=== PATIENT | female | born 1945 | race Asian ===

== ENCOUNTER 2017-05-20 15:08 | Inpatient (IN) | payer OTHER, MEDICARE ==
[2017-05-20 16:22] LABS: ADD MAN DIFF? NO
[2017-05-20 16:26] LABS: BASOPHIL # 0.1 10^3/ul (0.0-0.1); BASOPHILS % 0.5 % (0.0-2.0); EOSINOPHILS # 0.3 10^3/ul (0.0-0.5); EOSINOPHILS % 3.2 % (0.0-7.0); HEMATOCRIT 22.9 % (37.0-47.0); HEMOGLOBIN 7.8 g/dl (12.0-16.0); LYMPHOCYTES # 1.9 10^3/ul (0.8-2.9); LYMPHOCYTES % 18.5 % (15.0-51.0); MEAN CORPUSCULAR HEMOGLOBIN 28.7 pg (29.0-33.0); MEAN CORPUSCULAR HGB CONC 34.1 g/dl (32.0-37.0); MEAN CORPUSCULAR VOLUME 84.2 fl (82.0-101.0); MEAN PLATELET VOLUME 10.4 fl (7.4-10.4); MONOCYTE # 0.6 10^3/ul (0.3-0.9); MONOCYTES % 6.1 % (0.0-11.0); NEUTROPHIL # 7.5 10^3/ul (1.6-7.5); NEUTROPHILS % 71.2 % (39.0-77.0); PLATELET COUNT 447 10^3/UL (140-415); RED BLOOD COUNT 2.72 10^6/ul (4.20-5.40); RED CELL DISTRIBUTION WIDTH 15.9 % (11.5-14.5)
[2017-05-20 16:26] LABS: WHITE BLOOD COUNT 10.5 10^3/ul (4.8-10.8)
[2017-05-20 16:42] LABS: INR 0.91; PROTIME 12.3 Sec (11.9-14.9)
[2017-05-20 16:43] LABS: PARTIAL THROMBOPLASTIN TIME 34.4 Sec (25.0-35.0)
[2017-05-20 16:46] LABS: ANION GAP 20 (8-16); BLOOD UREA NITROGEN 62 mg/dl (7-20); CALCIUM 9.3 mg/dl (8.4-10.2); CARBON DIOXIDE 16 mmol/L (21-31); CHLORIDE 107 mmol/L (97-110); CREATININE 4.37 mg/dl (0.44-1.00); GLUCOSE 148 mg/dl (70-220); MAGNESIUM 2.5 mg/dl (1.7-2.5); PHOSPHORUS 4.7 mg/dl (2.5-4.9); POTASSIUM 3.5 mmol/L (3.5-5.1); SODIUM 139 mmol/L (135-144)
[2017-05-20 16:57] LABS: TROPONIN-I 0.024 ng/ml (0.00-0.12)
[2017-05-20 18:01] LABS: ADD UMIC YES; UR ASCORBIC ACID 40 mg/dL (NEGATIVE); UR BACTERIA FEW /HPF (NONE SEEN); UR BILIRUBIN (Dip) NEGATIVE (NEGATIVE); UR BLOOD (Dip) NEGATIVE (NEGATIVE); UR CLARITY CLEAR (CLEAR); UR COLOR STRAW (YELLOW); UR GLUCOSE (Dip) 3+ mg/dL (NEGATIVE); UR KETONES (Dip) NEGATIVE (NEGATIVE); UR LEUKOCYTE ESTERASE (Dip) NEGATIVE Leu/ul (NEGATIVE); UR NITRITE (Dip) NEGATIVE (NEGATIVE); UR RBC 0 /HPF (0-5); UR SPECIFIC GRAVITY (Dip) 1.009 (1.003-1.030); UR TOTAL PROTEIN (Dip) 3+ mg/dl (NEGATIVE); UR UROBILINOGEN (Dip) NEGATIVE (NEGATIVE); UR WBC 1 /HPF (0-5)
[2017-05-20] MEDS ORDERED: ACETAMINOPHEN 325 MG TAB PO (19:00)
[2017-05-20] MEDS ORDERED: ONDANSETRON 4 MG INJ IV (19:00)
[2017-05-20] MEDS ORDERED: NITROGLYCERIN (SL) 0.4 MG TAB SL (21:30)
[2017-05-20] MEDS ORDERED: GLUCOSE GEL 15 GRAM TUBE PO ×2 (22:00)
[2017-05-20] MEDS ORDERED: GLUCAGON 1 MG INJ IM (22:00)
[2017-05-20] MEDS ORDERED: GLUCOSE GEL 15 GRAM TUBE BUCCAL (22:00)
[2017-05-20] MEDS ORDERED: DEXTROSE 50% 50 ML SYRINGE IV ×2 (22:00)
[2017-05-20 22:09] LABS: CREATINE KINASE < 20 IU/L (23-200)
[2017-05-20 22:17] LABS: CK-MB 0.59 ng/ml (0.0-2.4); TROPONIN-I 0.029 ng/ml (0.00-0.12)
[2017-05-21] MEDS: ACCU-CHEK XX (02:42)
[2017-05-21 06:26] LABS: CREATINE KINASE 41 IU/L (23-200)
[2017-05-21 06:28] LABS: ALANINE AMINOTRANSFERASE 20 IU/L (13-69); ALBUMIN 3.4 g/dl (3.3-4.9); ALBUMIN/GLOBULIN RATIO 0.87; ALKALINE PHOSPHATASE 74 IU/L (42-121); ANION GAP 17 (8-16); ASPARTATE AMINO TRANSFERASE 15 IU/L (15-46); BLOOD UREA NITROGEN 60 mg/dl (7-20); CALCIUM 9.1 mg/dl (8.4-10.2); CARBON DIOXIDE 17 mmol/L (21-31); CHLORIDE 113 mmol/L (97-110); CREATININE 4.37 mg/dl (0.44-1.00); POTASSIUM 3.8 mmol/L (3.5-5.1); SODIUM 143 mmol/L (135-144); TOTAL PROTEIN 7.3 g/dl (6.1-8.1)
[2017-05-21 06:34] LABS: CK INDEX 2.9; TROPONIN-I 0.039 ng/ml (0.00-0.12)
[2017-05-21 06:58] LABS: HEMOGLOBIN A1C 6.7 % (0-5.9)
[2017-05-21 06:58] LABS: HDL CHOLESTEROL 27 mg/dl (33-92); TRIGLYCERIDES 471 mg/dl (0-149)
[2017-05-21 07:07] LABS: TROPONIN-I 0.033 ng/ml (0.00-0.12)
[2017-05-21 07:12] LABS: GLUCOSE 50 mg/dl (70-220)
[2017-05-21 07:15] LABS: CHOLESTEROL 325 mg/dl (100-200)
[2017-05-21 07:17] LABS: LDL CHOLESTEROL,CALCULATED 204 mg/dl
[2017-05-21] MEDS: INSULIN ASPART [NOVOLOG] 3 ML PEN SC ×4 (07:55→21:20)
[2017-05-21] MEDS: INSULIN GLARGINE [LANtus] 3 ML PEN SC (08:00)
[2017-05-21] MEDS: ALLOPURINOL 100 MG TAB PO (08:52)
[2017-05-21] MEDS: LEVOTHYROXINE 25 MCG TAB PO (08:52)
[2017-05-21] MEDS: CHOLECALCIFEROL 1,000 UNIT TAB PO (08:53)
[2017-05-21] MEDS: CLOPIDOGREL 75 MG TAB PO (08:53)
[2017-05-21] MEDS: PANTOPRAZOLE (EC) 40 MG TAB PO (08:53)
[2017-05-21] MEDS: AMLODIPINE 10 MG TAB PO (08:53)
[2017-05-21] MEDS: GEMFIBROZIL 600 MG TAB PO (08:53)
[2017-05-21 08:54] LABS: HAAIG REFLEX REFLEX FILED
[2017-05-21 08:56] LABS: RETICULOCYTE COUNT # 0.046 X10^6 (0.020-0.110); RETICULOCYTE COUNT % 1.8 % (0.5-1.5)
[2017-05-21 08:56] LABS: RETICULOCYTE RBC 2.55
[2017-05-21 09:29] LABS: URIC ACID 4.3 mg/dl (3.1-7.9)
[2017-05-21 09:35] LABS: IRON 45 ug/dl (35-150)
[2017-05-21 09:46] LABS: % IRON SATURATION 14 % SAT (22-52); TOTAL IRON BINDING CAPACITY 313 ug/dl (241-421)
[2017-05-21] MEDS: DEXTROSE 5%-0.45% NACL 1,000 ML IV (09:57)
[2017-05-21 10:08] LABS: HEPATITIS B SURFACE ANTIGEN NEGATIVE (NEGATIVE)
[2017-05-21 10:26] LABS: HEPATITIS B CORE ANTIBODY REACTIVE (NEGATIVE); HEPATITIS C VIRAL ANTIBODY NEGATIVE (NEGATIVE); HIV 1&2 ANTIBODY NEGATIVE (NEGATIVE)
[2017-05-21 10:42] LABS: FOLATE 14.1 ng/ml (2.8-20.0)
[2017-05-21] MEDS: EPOETIN 3000 UNITS/1 ML INJ (ESRD) SC (18:06)
[2017-05-22] MEDS: DEXTROSE 5%-0.45% NACL 1,000 ML IV
[2017-05-22] MEDS: ACCU-CHEK XX ×2 (03:00→21:58)
[2017-05-22] MEDS: LEVOTHYROXINE 25 MCG TAB PO (06:24)
[2017-05-22] MEDS: PANTOPRAZOLE (EC) 40 MG TAB PO (06:24)
[2017-05-22] MEDS ORDERED: LIDOCAINE 1% (MDV) 20 ML INJ (07:15)
[2017-05-22] MEDS ORDERED: HEPARIN 1000 UNITS/ML 10 ML INJ (07:16)
[2017-05-22] MEDS ORDERED: FENTAnyl 50 MCG/ML VIAL (07:30)
[2017-05-22] MEDS ORDERED: IOHEXOL 350MG/ML 50 ML BTL (07:33)
[2017-05-22] MEDS: ESCITALOPRAM 10 MG TAB PO (08:46)
[2017-05-22] MEDS: GEMFIBROZIL 600 MG TAB PO (08:47)
[2017-05-22] MEDS: ALLOPURINOL 100 MG TAB PO (08:47)
[2017-05-22] MEDS: CLOPIDOGREL 75 MG TAB PO (08:47)
[2017-05-22] MEDS: CHOLECALCIFEROL 1,000 UNIT TAB PO (08:47)
[2017-05-22] MEDS: AMLODIPINE 10 MG TAB PO (08:49)
[2017-05-22] MEDS: INSULIN ASPART [NOVOLOG] 3 ML PEN SC ×4 (08:49→21:00)
[2017-05-22 11:00] LABS: WHITE BLOOD COUNT 9.5 10^3/ul (4.8-10.8)
[2017-05-22 11:00] LABS: ABNORMAL IP MESSAGE 1; MEAN CORPUSCULAR HEMOGLOBIN 28.4 pg (29.0-33.0); MEAN CORPUSCULAR HGB CONC 33.7 g/dl (32.0-37.0); MEAN CORPUSCULAR VOLUME 84.4 fl (82.0-101.0); MEAN PLATELET VOLUME 10.2 fl (7.4-10.4); PLATELET COUNT 371 10^3/UL (140-415); RED BLOOD COUNT 2.25 10^6/ul (4.20-5.40); RED CELL DISTRIBUTION WIDTH 15.9 % (11.5-14.5)
[2017-05-22 11:04] LABS: POSITIVE DIFF @See below
[2017-05-22 11:06] LABS: ADD MAN DIFF? YES; HEMOGLOBIN 6.4 g/dl (12.0-16.0)
[2017-05-22 11:17] LABS: ANION GAP 13 (8-16); BLOOD UREA NITROGEN 27 mg/dl (7-20); CARBON DIOXIDE 21 mmol/L (21-31); CHLORIDE 109 mmol/L (97-110); CREATININE 2.13 mg/dl (0.44-1.00); GLUCOSE 170 mg/dl (70-220); POTASSIUM 3.1 mmol/L (3.5-5.1); SODIUM 140 mmol/L (135-144)
[2017-05-22 12:23] LABS: HEMATOCRIT 18.6 % (37.0-47.0)
[2017-05-22 12:28] LABS: HEMOGLOBIN 6.6 g/dl (12.0-16.0)
[2017-05-22] MEDS: POTASSIUM CHLORIDE (SR) 20 MEQ TAB PO (15:14)
[2017-05-22] MEDS: EPOETIN 10000 UNITS/1 ML INJ (ESRD) SC (17:31)
[2017-05-22] MEDS: morphine 2 MG INJ IV (19:28)
[2017-05-22] MEDS: ACETAMINOPHEN 500 MG TAB PO (20:33)
[2017-05-22 20:44] LABS: IMMEDIATE SPIN CROSSMATCH 1 1
[2017-05-22] MEDS: SOD CHLORIDE 0.9% 250 ML IV (21:58)
[2017-05-23] MEDS: PANTOPRAZOLE (EC) 40 MG TAB PO (06:10)
[2017-05-23] MEDS: INSULIN ASPART [NOVOLOG] 3 ML PEN SC ×4 (07:55→21:00)
[2017-05-23] MEDS: LEVOTHYROXINE 25 MCG TAB PO (07:59)
[2017-05-23] MEDS: AMLODIPINE 10 MG TAB PO (08:15)
[2017-05-23] MEDS: ESCITALOPRAM 10 MG TAB PO (08:22)
[2017-05-23] MEDS: ALLOPURINOL 100 MG TAB PO (08:23)
[2017-05-23] MEDS: CHOLECALCIFEROL 1,000 UNIT TAB PO (08:23)
[2017-05-23] MEDS: GEMFIBROZIL 600 MG TAB PO (08:23)
[2017-05-23] MEDS: CLOPIDOGREL 75 MG TAB PO (08:33)
[2017-05-23] MEDS: morphine 2 MG INJ IV (08:37)
[2017-05-23 11:56] LABS: ADD MAN DIFF? NO
[2017-05-23 12:02] LABS: WHITE BLOOD COUNT 9.6 10^3/ul (4.8-10.8)
[2017-05-23 12:02] LABS: BASOPHIL # 0.1 10^3/ul (0.0-0.1); BASOPHILS % 0.6 % (0.0-2.0); EOSINOPHILS # 0.3 10^3/ul (0.0-0.5); EOSINOPHILS % 3.5 % (0.0-7.0); HEMATOCRIT 24.1 % (37.0-47.0); HEMOGLOBIN 7.9 g/dl (12.0-16.0); LYMPHOCYTES # 2.2 10^3/ul (0.8-2.9); LYMPHOCYTES % 22.7 % (15.0-51.0); MEAN CORPUSCULAR HEMOGLOBIN 28.4 pg (29.0-33.0); MEAN CORPUSCULAR HGB CONC 32.8 g/dl (32.0-37.0); MEAN CORPUSCULAR VOLUME 86.7 fl (82.0-101.0); MEAN PLATELET VOLUME 9.9 fl (7.4-10.4); MONOCYTE # 0.6 10^3/ul (0.3-0.9); MONOCYTES % 6.4 % (0.0-11.0); NEUTROPHIL # 6.3 10^3/ul (1.6-7.5); NEUTROPHILS % 65.4 % (39.0-77.0); PLATELET COUNT 381 10^3/UL (140-415); RED BLOOD COUNT 2.78 10^6/ul (4.20-5.40)
[2017-05-23 12:29] LABS: ANION GAP 15 (8-16); BLOOD UREA NITROGEN 31 mg/dl (7-20); CALCIUM 8.4 mg/dl (8.4-10.2); CARBON DIOXIDE 21 mmol/L (21-31); CHLORIDE 104 mmol/L (97-110); CREATININE 3.34 mg/dl (0.44-1.00); GLUCOSE 124 mg/dl (70-220); POTASSIUM 4.2 mmol/L (3.5-5.1); SODIUM 136 mmol/L (135-144)
[2017-05-23] MEDS: EPOETIN 3000 UNITS/1 ML INJ (ESRD) SC (17:34)
[2017-05-23] MEDS: hydrALAzine 20 MG INJ IV (17:36)
[2017-05-23 17:48] LABS: PTH CALCIUM 8.6 mg/dL (8.6-10.4)
[2017-05-24] MEDS: ACCU-CHEK XX (02:00)
[2017-05-24] MEDS: PANTOPRAZOLE (EC) 40 MG TAB PO (06:13)
[2017-05-24] MEDS: LEVOTHYROXINE 25 MCG TAB PO (06:13)
[2017-05-24] MEDS: INSULIN ASPART [NOVOLOG] 3 ML PEN SC ×4 (07:55→21:16)
[2017-05-24] MEDS: GEMFIBROZIL 600 MG TAB PO (08:32)
[2017-05-24] MEDS: ALLOPURINOL 100 MG TAB PO (08:32)
[2017-05-24] MEDS: CHOLECALCIFEROL 1,000 UNIT TAB PO (08:32)
[2017-05-24] MEDS: CLOPIDOGREL 75 MG TAB PO (08:32)
[2017-05-24] MEDS: AMLODIPINE 10 MG TAB PO (08:32)
[2017-05-24] MEDS: ESCITALOPRAM 10 MG TAB PO (08:32)
[2017-05-24] MEDS ORDERED: ATENOLOL 50 MG TAB PO (21:00)
[2017-05-24] MEDS: ATENOLOL 50 MG TAB PO (21:12)
[2017-05-25] MEDS: ACCU-CHEK XX (02:00)
[2017-05-25] MEDS: PANTOPRAZOLE (EC) 40 MG TAB PO (05:58)
[2017-05-25] MEDS: LEVOTHYROXINE 25 MCG TAB PO (06:00)
[2017-05-25] MEDS: GEMFIBROZIL 600 MG TAB PO ×2 (08:08→09:37)
[2017-05-25] MEDS: ATENOLOL 50 MG TAB PO ×2 (08:08→21:09)
[2017-05-25] MEDS: ESCITALOPRAM 10 MG TAB PO ×2 (08:08→09:37)
[2017-05-25] MEDS: AMLODIPINE 10 MG TAB PO ×2 (08:08→09:37)
[2017-05-25] MEDS: INSULIN ASPART [NOVOLOG] 3 ML PEN SC ×4 (08:41→21:00)
[2017-05-25] MEDS: CHOLECALCIFEROL 1,000 UNIT TAB PO ×2 (08:55→09:37)
[2017-05-25] MEDS: ALLOPURINOL 100 MG TAB PO ×2 (08:55→09:37)
[2017-05-25] MEDS: CLOPIDOGREL 75 MG TAB PO (09:37)
[2017-05-25] MEDS ORDERED: ONDANSETRON 4 MG INJ IV (12:30)
[2017-05-26] MEDS: ACCU-CHEK XX (02:00)
[2017-05-26] MEDS: PANTOPRAZOLE (EC) 40 MG TAB PO (05:47)
[2017-05-26] MEDS: LEVOTHYROXINE 25 MCG TAB PO (06:04)
[2017-05-26] MEDS: INSULIN ASPART [NOVOLOG] 3 ML PEN SC ×4 (07:43→21:00)
[2017-05-26] MEDS: ATENOLOL 50 MG TAB PO ×2 (08:13→20:43)
[2017-05-26] MEDS: AMLODIPINE 10 MG TAB PO (08:13)
[2017-05-26] MEDS: GEMFIBROZIL 600 MG TAB PO (08:18)
[2017-05-26] MEDS: CHOLECALCIFEROL 1,000 UNIT TAB PO (08:19)
[2017-05-26] MEDS: ESCITALOPRAM 10 MG TAB PO (08:19)
[2017-05-26] MEDS: CLOPIDOGREL 75 MG TAB PO (08:19)
[2017-05-26] MEDS: ALLOPURINOL 100 MG TAB PO (08:19)
[2017-05-26 09:05] LABS: ADD MAN DIFF? NO
[2017-05-26 09:08] LABS: WHITE BLOOD COUNT 9.9 10^3/ul (4.8-10.8)
[2017-05-26 09:08] LABS: BASOPHIL # 0.1 10^3/ul (0.0-0.1); BASOPHILS % 0.5 % (0.0-2.0); EOSINOPHILS # 0.3 10^3/ul (0.0-0.5); EOSINOPHILS % 2.5 % (0.0-7.0); HEMATOCRIT 26.4 % (37.0-47.0); HEMOGLOBIN 8.6 g/dl (12.0-16.0); LYMPHOCYTES # 1.6 10^3/ul (0.8-2.9); LYMPHOCYTES % 15.8 % (15.0-51.0); MEAN CORPUSCULAR HEMOGLOBIN 28.6 pg (29.0-33.0); MEAN CORPUSCULAR HGB CONC 32.6 g/dl (32.0-37.0); MEAN CORPUSCULAR VOLUME 87.7 fl (82.0-101.0); MEAN PLATELET VOLUME 9.8 fl (7.4-10.4); MONOCYTE # 0.8 10^3/ul (0.3-0.9); MONOCYTES % 8.5 % (0.0-11.0); NEUTROPHIL # 7.1 10^3/ul (1.6-7.5); PLATELET COUNT 386 10^3/UL (140-415); RED BLOOD COUNT 3.01 10^6/ul (4.20-5.40); RED CELL DISTRIBUTION WIDTH 15.9 % (11.5-14.5)
[2017-05-26 09:30] LABS: ANION GAP 12 (8-16); BLOOD UREA NITROGEN 10 mg/dl (7-20); CALCIUM 8.8 mg/dl (8.4-10.2); CARBON DIOXIDE 29 mmol/L (21-31); CHLORIDE 102 mmol/L (97-110); GLUCOSE 174 mg/dl (70-220); POTASSIUM 3.5 mmol/L (3.5-5.1); SODIUM 139 mmol/L (135-144)
[2017-05-26 13:29] LABS: OCCULT BLOOD STOOL NEGATIVE (NEGATIVE)
[2017-05-26] MEDS: EPOETIN 3000 UNITS/1 ML INJ (ESRD) SC (17:33)
[2017-05-27] MEDS: ACCU-CHEK XX (02:00)
[2017-05-27] MEDS: PANTOPRAZOLE (EC) 40 MG TAB PO (06:25)
[2017-05-27] MEDS: LEVOTHYROXINE 25 MCG TAB PO (06:25)
[2017-05-27] MEDS: hydrALAzine 20 MG INJ IV (06:26)
[2017-05-27 07:56] LABS: PTH INTACT 67 pg/mL (14-64)
[2017-05-27] MEDS: INSULIN ASPART [NOVOLOG] 3 ML PEN SC ×4 (08:10→22:04)
[2017-05-27] MEDS: AMLODIPINE 10 MG TAB PO (08:19)
[2017-05-27] MEDS: ATENOLOL 50 MG TAB PO ×2 (08:20→21:00)
[2017-05-27] MEDS: CLOPIDOGREL 75 MG TAB PO (08:21)
[2017-05-27] MEDS: ESCITALOPRAM 10 MG TAB PO (08:21)
[2017-05-27] MEDS: GEMFIBROZIL 600 MG TAB PO (08:22)
[2017-05-27] MEDS: CHOLECALCIFEROL 1,000 UNIT TAB PO (08:22)
[2017-05-27] MEDS: ALLOPURINOL 100 MG TAB PO (08:22)
[2017-05-27] MEDS ORDERED: LIDOCAINE 1% (MPF) 30 ML INJ (11:15)
[2017-05-27] MEDS ORDERED: PROPOFOL 100 ML (11:46)
[2017-05-27] MEDS ORDERED: MIDAZOLAM 1 MG/ML 2 ML INJ (11:46)
[2017-05-27] MEDS ORDERED: FENTAnyl 50 MCG/ML VIAL (11:46)
[2017-05-27] MEDS: GELATIN SIZE 100 SPONGE (12:00)
[2017-05-27] MEDS: THROMBIN 5000 UNIT VIAL (12:00)
[2017-05-27] MEDS: HEPARIN 1000 UNITS/ML 10 ML INJ (12:01)
[2017-05-27] MEDS ORDERED: ROPIVACAINE 0.2% 20 ML VIAL (12:05)
[2017-05-27] MEDS ORDERED: FENTAnyl 50 MCG/ML VIAL IV (14:00)
[2017-05-27] MEDS ORDERED: hydrALAzine 20 MG INJ IV (14:00)
[2017-05-28] MEDS: morphine 2 MG INJ IV ×2 (02:38→20:14)
[2017-05-28] MEDS: ACCU-CHEK XX (02:49)
[2017-05-28] MEDS: PANTOPRAZOLE (EC) 40 MG TAB PO (05:57)
[2017-05-28] MEDS: LEVOTHYROXINE 25 MCG TAB PO (05:57)
[2017-05-28] MEDS: ACETAMINOPHEN 500 MG TAB PO (06:04)
[2017-05-28] MEDS: INSULIN ASPART [NOVOLOG] 3 ML PEN SC ×4 (08:09→23:34)
[2017-05-28] MEDS: GEMFIBROZIL 600 MG TAB PO (09:11)
[2017-05-28] MEDS: CLOPIDOGREL 75 MG TAB PO (09:11)
[2017-05-28] MEDS: AMLODIPINE 10 MG TAB PO (09:12)
[2017-05-28] MEDS: ESCITALOPRAM 10 MG TAB PO (09:12)
[2017-05-28] MEDS: CHOLECALCIFEROL 1,000 UNIT TAB PO (09:12)
[2017-05-28] MEDS: ALLOPURINOL 100 MG TAB PO (09:12)
[2017-05-28] MEDS: ATENOLOL 50 MG TAB PO ×2 (09:13→20:17)
[2017-05-28] MEDS: EPOETIN 3000 UNITS/1 ML INJ (ESRD) SC (20:16)
[2017-05-29] MEDS: ACCU-CHEK XX (02:00)
[2017-05-29] MEDS: PANTOPRAZOLE (EC) 40 MG TAB PO (06:02)
[2017-05-29] MEDS: LEVOTHYROXINE 25 MCG TAB PO (06:02)
[2017-05-29] MEDS: ESCITALOPRAM 10 MG TAB PO (08:29)
[2017-05-29] MEDS: CHOLECALCIFEROL 1,000 UNIT TAB PO (08:29)
[2017-05-29] MEDS: ALLOPURINOL 100 MG TAB PO (08:29)
[2017-05-29] MEDS: CLOPIDOGREL 75 MG TAB PO (08:29)
[2017-05-29] MEDS: GEMFIBROZIL 600 MG TAB PO (08:29)
[2017-05-29] MEDS: AMLODIPINE 10 MG TAB PO (08:30)
[2017-05-29] MEDS: ATENOLOL 50 MG TAB PO (08:36)
[2017-05-29] MEDS: INSULIN ASPART [NOVOLOG] 3 ML PEN SC ×5 (08:39→21:07)
[2017-05-29] MEDS: ACETAMINOPHEN 500 MG TAB PO ×2 (11:56→20:57)
[2017-05-29] MEDS: INSULIN GLARGINE [LANtus] 3 ML PEN SC (23:38)
[2017-05-30] MEDS: ACCU-CHEK XX (02:00)
[2017-05-30 06:21] LABS: ADD MAN DIFF? NO
[2017-05-30] MEDS: LEVOTHYROXINE 25 MCG TAB PO (06:24)
[2017-05-30] MEDS: PANTOPRAZOLE (EC) 40 MG TAB PO (06:24)
[2017-05-30 06:38] LABS: WHITE BLOOD COUNT 7.7 10^3/ul (4.8-10.8)
[2017-05-30 06:38] LABS: BASOPHIL # 0.1 10^3/ul (0.0-0.1); BASOPHILS % 0.7 % (0.0-2.0); EOSINOPHILS # 0.3 10^3/ul (0.0-0.5); EOSINOPHILS % 3.8 % (0.0-7.0); HEMATOCRIT 22.3 % (37.0-47.0); HEMOGLOBIN 7.2 g/dl (12.0-16.0); LYMPHOCYTES # 1.9 10^3/ul (0.8-2.9); LYMPHOCYTES % 25.2 % (15.0-51.0); MEAN CORPUSCULAR HEMOGLOBIN 28.3 pg (29.0-33.0); MEAN CORPUSCULAR HGB CONC 32.3 g/dl (32.0-37.0); MEAN CORPUSCULAR VOLUME 87.8 fl (82.0-101.0); MEAN PLATELET VOLUME 10.5 fl (7.4-10.4); MONOCYTE # 0.7 10^3/ul (0.3-0.9); MONOCYTES % 8.8 % (0.0-11.0); NEUTROPHIL # 4.7 10^3/ul (1.6-7.5); NEUTROPHILS % 61.2 % (39.0-77.0); PLATELET COUNT 349 10^3/UL (140-415); RED BLOOD COUNT 2.54 10^6/ul (4.20-5.40); RED CELL DISTRIBUTION WIDTH 15.6 % (11.5-14.5)
[2017-05-30 06:54] LABS: ANION GAP 15 (8-16); BLOOD UREA NITROGEN 30 mg/dl (7-20); CALCIUM 8.8 mg/dl (8.4-10.2); CARBON DIOXIDE 22 mmol/L (21-31); CHLORIDE 103 mmol/L (97-110); GLUCOSE 144 mg/dl (70-220); POTASSIUM 3.8 mmol/L (3.5-5.1); SODIUM 136 mmol/L (135-144)
[2017-05-30] MEDS: INSULIN ASPART [NOVOLOG] 3 ML PEN SC ×7 (07:55→21:13)
[2017-05-30] MEDS: ALLOPURINOL 100 MG TAB PO (11:48)
[2017-05-30] MEDS: GEMFIBROZIL 600 MG TAB PO (11:48)
[2017-05-30] MEDS: ESCITALOPRAM 10 MG TAB PO (11:49)
[2017-05-30] MEDS: AMLODIPINE 10 MG TAB PO (11:49)
[2017-05-30] MEDS: CLOPIDOGREL 75 MG TAB PO (11:50)
[2017-05-30] MEDS: CHOLECALCIFEROL 1,000 UNIT TAB PO (11:50)
[2017-05-30] MEDS: ACETAMINOPHEN 500 MG TAB PO (12:50)
[2017-05-30] MEDS: EPOETIN 3000 UNITS/1 ML INJ (ESRD) SC (18:20)
[2017-05-30] MEDS: INSULIN GLARGINE [LANtus] 3 ML PEN SC (21:13)
[2017-05-31] MEDS: ACCU-CHEK XX (03:01)
[2017-05-31] MEDS: PANTOPRAZOLE (EC) 40 MG TAB PO (06:19)
[2017-05-31] MEDS: LEVOTHYROXINE 25 MCG TAB PO (06:19)
[2017-05-31 06:37] LABS: ADD MAN DIFF? NO
[2017-05-31 06:39] LABS: WHITE BLOOD COUNT 6.4 10^3/ul (4.8-10.8)
[2017-05-31 06:39] LABS: BASOPHILS % 0.6 % (0.0-2.0); EOSINOPHILS # 0.2 10^3/ul (0.0-0.5); EOSINOPHILS % 3.1 % (0.0-7.0); HEMATOCRIT 23.8 % (37.0-47.0); HEMOGLOBIN 7.7 g/dl (12.0-16.0); LYMPHOCYTES % 31.4 % (15.0-51.0); MEAN CORPUSCULAR HGB CONC 32.4 g/dl (32.0-37.0); MEAN CORPUSCULAR VOLUME 86.5 fl (82.0-101.0); MONOCYTE # 0.5 10^3/ul (0.3-0.9); MONOCYTES % 7.8 % (0.0-11.0); NEUTROPHIL # 3.6 10^3/ul (1.6-7.5); NEUTROPHILS % 56.8 % (39.0-77.0); PLATELET COUNT 384 10^3/UL (140-415); RED BLOOD COUNT 2.75 10^6/ul (4.20-5.40); RED CELL DISTRIBUTION WIDTH 15.7 % (11.5-14.5)
[2017-05-31 07:28] LABS: ANION GAP 14 (8-16); BLOOD UREA NITROGEN 25 mg/dl (7-20); CALCIUM 8.9 mg/dl (8.4-10.2); CARBON DIOXIDE 28 mmol/L (21-31); CHLORIDE 99 mmol/L (97-110); CREATININE 3.12 mg/dl (0.44-1.00); GLUCOSE 122 mg/dl (70-220); POTASSIUM 3.4 mmol/L (3.5-5.1); SODIUM 138 mmol/L (135-144)
[2017-05-31] MEDS: INSULIN ASPART [NOVOLOG] 3 ML PEN SC ×6 (07:55→17:55)
[2017-05-31] MEDS: CHOLECALCIFEROL 1,000 UNIT TAB PO (08:45)
[2017-05-31] MEDS: ESCITALOPRAM 10 MG TAB PO (08:46)
[2017-05-31] MEDS: AMLODIPINE 10 MG TAB PO (08:47)
[2017-05-31] MEDS: GEMFIBROZIL 600 MG TAB PO (08:48)
[2017-05-31] MEDS: CLOPIDOGREL 75 MG TAB PO (08:48)
[2017-05-31] MEDS: ALLOPURINOL 100 MG TAB PO (08:48)
[2017-05-31] MEDS: POTASSIUM CHLORIDE (SR) 20 MEQ TAB PO (15:57)
== END 2017-05-31 18:25 | disposition home or self-care (01) | DRG 264 ==
LOC: TEL 18:41 → E/R 15:08
PROC: 03180ZF Bypass Left Brachial Artery to Lower Arm Vein, Open Approach (ICD-10-PCS; principal; 2017-05-22 07:20)
PROC: 06H033Z Insertion of Infusion Device into Inferior Vena Cava, Percutaneous Approach (ICD-10-PCS; 2017-05-22 07:20)
PROC: 0JH63XZ Insertion of Tunneled Vascular Access Device into Chest Subcutaneous Tissue and Fascia, Percutaneous Approach (ICD-10-PCS; 2017-05-22 07:20)
PROC: 5A1D70Z Performance of Urinary Filtration, Intermittent, Less than 6 Hours Per Day (ICD-10-PCS; 2017-05-22 07:20)
PROC: 30233N1 Transfusion of Nonautologous Red Blood Cells into Peripheral Vein, Percutaneous Approach (ICD-10-PCS; 2017-05-22 07:20)
DX: I13.2 Hypertensive heart and chronic kidney disease with heart failure and with stage 5 chronic kidney disease, or end stage renal disease (principal); N18.6 End stage renal disease; E11.22 Type 2 diabetes mellitus with diabetic chronic kidney disease; I50.31 Acute diastolic (congestive) heart failure; D63.1 Anemia in chronic kidney disease; E87.6 Hypokalemia; E03.9 Hypothyroidism, unspecified; M81.0 Age-related osteoporosis without current pathological fracture; E78.5 Hyperlipidemia, unspecified; I25.10 Atherosclerotic heart disease of native coronary artery without angina pectoris; Z79.4 Long term (current) use of insulin
CPT/HCPCS: 36415; 36430; 71010; 80048; 80053; 80061; 81001; 82270; 82306; 82550; 82553; 82607; 82728; 82746; 82962; 83036; 83540; 83735; 83970; 84100; 84484; 84560; 85014; 85018; 85025; 85045; 85610; 85730; 86703; 86704; 86709; 86803; 86850; 86900; 86901; 86920; 87340; 90935; 93005; 93306; 93923; 93970; 99285-25

== ENCOUNTER 2017-08-22 06:59 | Observation (INO) | payer OTHER ==
[2017-08-22] MEDS ORDERED: NITROGLYCERIN (SL) 0.4 MG TAB SL ×2 (07:30→16:00)
[2017-08-22 07:35] LABS: ADD MAN DIFF? NO
[2017-08-22 07:38] LABS: BASOPHIL # 0.1 10^3/ul (0.0-0.1); BASOPHILS % 0.9 % (0.0-2.0); EOSINOPHILS # 0.3 10^3/ul (0.0-0.5); EOSINOPHILS % 2.9 % (0.0-7.0); HEMATOCRIT 33.4 % (37.0-47.0); HEMOGLOBIN 11.9 g/dl (12.0-16.0); LYMPHOCYTES # 2.3 10^3/ul (0.8-2.9); LYMPHOCYTES % 25.8 % (15.0-51.0); MEAN CORPUSCULAR HEMOGLOBIN 28.5 pg (29.0-33.0); MEAN CORPUSCULAR HGB CONC 35.6 g/dl (32.0-37.0); MEAN CORPUSCULAR VOLUME 80.1 fl (82.0-101.0); MEAN PLATELET VOLUME 10.6 fl (7.4-10.4); MONOCYTE # 0.6 10^3/ul (0.3-0.9); MONOCYTES % 6.6 % (0.0-11.0); NEUTROPHIL # 5.7 10^3/ul (1.6-7.5); NEUTROPHILS % 63.5 % (39.0-77.0); PLATELET COUNT 337 10^3/UL (140-415); RED BLOOD COUNT 4.17 10^6/ul (4.20-5.40); RED CELL DISTRIBUTION WIDTH 15.5 % (11.5-14.5)
[2017-08-22 08:01] LABS: ANION GAP 19 (8-16); BLOOD UREA NITROGEN 31 mg/dl (7-20); CALCIUM 8.6 mg/dl (8.4-10.2); CARBON DIOXIDE 28 mmol/L (21-31); CHLORIDE 91 mmol/L (97-110); CREATININE 2.76 mg/dl (0.44-1.00); GLUCOSE 336 mg/dl (70-220); SODIUM 135 mmol/L (135-144)
[2017-08-22 08:12] LABS: B-TYPE NATRIURETIC PEPTIDE 1380 PG/ML (0-125)
[2017-08-22] MEDS ORDERED: ACETAMINOPHEN 325 MG TAB PO (09:00)
[2017-08-22] MEDS ORDERED: ONDANSETRON 4 MG INJ IV (09:00)
[2017-08-22] MEDS: CLOPIDOGREL 75 MG TAB PO (09:05)
[2017-08-22] MEDS: POTASSIUM CHLORIDE (SR) 20 MEQ TAB PO (09:05)
[2017-08-22 15:30] LABS: CREATINE KINASE 28 IU/L (23-200)
[2017-08-22 15:43] LABS: CK INDEX 1.1; CK-MB 0.31 ng/ml (0.0-2.4); TROPONIN-I 0.013 ng/ml (0.00-0.12)
[2017-08-22] MEDS ORDERED: GLUCAGON 1 MG INJ IM (18:30)
[2017-08-22] MEDS ORDERED: GLUCOSE GEL 15 GRAM TUBE BUCCAL (18:30)
[2017-08-22] MEDS ORDERED: DEXTROSE 50% 50 ML SYRINGE IV ×2 (18:30)
[2017-08-22] MEDS ORDERED: GLUCOSE GEL 15 GRAM TUBE PO ×2 (18:30)
[2017-08-22] MEDS: INSULIN ASPART [NOVOLOG] 3 ML PEN SC ×2 (18:56→21:10)
[2017-08-22] MEDS ORDERED: INSULIN GLARGINE [LANtus] 3 ML PEN SC (19:30)
[2017-08-22 19:32] LABS: CREATINE KINASE 27 IU/L (23-200)
[2017-08-22 19:46] LABS: CK INDEX 0.8; CK-MB 0.22 ng/ml (0.0-2.4); TROPONIN-I < 0.012 ng/ml (0.00-0.12)
[2017-08-22 20:26] LABS: ANION GAP 17 (8-16); BLOOD UREA NITROGEN 37 mg/dl (7-20); CALCIUM 8.8 mg/dl (8.4-10.2); CARBON DIOXIDE 27 mmol/L (21-31); CHLORIDE 94 mmol/L (97-110); CREATININE 2.95 mg/dl (0.44-1.00); GLUCOSE 384 mg/dl (70-220); SODIUM 135 mmol/L (135-144)
[2017-08-22] MEDS: INSULIN GLARGINE [LANtus] 3 ML PEN SC (21:12)
[2017-08-23] MEDS: PANTOPRAZOLE (EC) 40 MG TAB PO (05:52)
[2017-08-23] MEDS: LEVOTHYROXINE 25 MCG TAB PO (06:04)
[2017-08-23] MEDS ORDERED: INSULIN ISOPHAN XX (07:30)
[2017-08-23 08:31] LABS: ADD MAN DIFF? NO
[2017-08-23 08:41] LABS: BASOPHIL # 0.1 10^3/ul (0.0-0.1); BASOPHILS % 0.7 % (0.0-2.0); EOSINOPHILS # 0.3 10^3/ul (0.0-0.5); EOSINOPHILS % 3.2 % (0.0-7.0); HEMOGLOBIN 11.6 g/dl (12.0-16.0); LYMPHOCYTES # 2.1 10^3/ul (0.8-2.9); LYMPHOCYTES % 21.7 % (15.0-51.0); MEAN CORPUSCULAR HEMOGLOBIN 27.8 pg (29.0-33.0); MEAN CORPUSCULAR HGB CONC 34.1 g/dl (32.0-37.0); MEAN CORPUSCULAR VOLUME 81.3 fl (82.0-101.0); MEAN PLATELET VOLUME 10.5 fl (7.4-10.4); MONOCYTE # 0.6 10^3/ul (0.3-0.9); MONOCYTES % 6.6 % (0.0-11.0); NEUTROPHIL # 6.6 10^3/ul (1.6-7.5); NEUTROPHILS % 67.5 % (39.0-77.0); PLATELET COUNT 306 10^3/UL (140-415); RED BLOOD COUNT 4.18 10^6/ul (4.20-5.40); RED CELL DISTRIBUTION WIDTH 15.7 % (11.5-14.5)
[2017-08-23 08:41] LABS: WHITE BLOOD COUNT 9.7 10^3/ul (4.8-10.8)
[2017-08-23 08:51] LABS: IRON 80 ug/dl (35-150)
[2017-08-23 08:58] LABS: ANION GAP 15 (8-16); BLOOD UREA NITROGEN 39 mg/dl (7-20); CALCIUM 9.1 mg/dl (8.4-10.2); CARBON DIOXIDE 28 mmol/L (21-31); CHLORIDE 98 mmol/L (97-110); CHOL/HDL RATIO 9.4 RATIO; CHOLESTEROL 264 mg/dl (100-200); CREATININE 3.05 mg/dl (0.44-1.00); GLUCOSE 153 mg/dl (70-220); HDL CHOLESTEROL 28 mg/dl (33-92); MAGNESIUM 1.9 mg/dl (1.7-2.5); PHOSPHORUS 4.6 mg/dl (2.5-4.9); SODIUM 138 mmol/L (135-144)
[2017-08-23 08:59] LABS: % IRON SATURATION 37 % SAT (22-52)
[2017-08-23] MEDS: AMLODIPINE 10 MG TAB PO ×2 (09:00→15:29)
[2017-08-23] MEDS: VALSARTAN 80 MG TAB PO (09:00)
[2017-08-23] MEDS: ESCITALOPRAM 10 MG TAB PO (09:05)
[2017-08-23] MEDS: ASCORBIC ACID 500 MG TAB PO (09:05)
[2017-08-23] MEDS: CLOPIDOGREL 75 MG TAB PO (09:05)
[2017-08-23] MEDS: CHOLECALCIFEROL 1,000 UNIT TAB PO (09:05)
[2017-08-23 09:06] LABS: TOTAL IRON BINDING CAPACITY 216 ug/dl (241-421)
[2017-08-23] MEDS: CALCIUM/VITAMIN D (500/200) TAB PO (09:06)
[2017-08-23] MEDS: FAMOTIDINE 20 MG TAB PO (09:06)
[2017-08-23] MEDS: ALLOPURINOL 100 MG TAB PO (09:06)
[2017-08-23 09:07] LABS: LDL CHOLESTEROL,CALCULATED 50 mg/dl; TRIGLYCERIDES 930 mg/dl (0-149)
[2017-08-23] MEDS: INSULIN ASPART [NOVOLOG] 3 ML PEN SC ×7 (09:07→21:00)
[2017-08-23 11:00] LABS: LIPASE 304 U/L (23-300)
[2017-08-23] MEDS: FISH OIL 1,000 MG CAP PO ×2 (11:22→21:59)
[2017-08-23] MEDS: POTASSIUM CHLORIDE (SR) 20 MEQ TAB PO (11:22)
[2017-08-23] MEDS: METOPROLOL 25 MG TAB PO ×3 (11:30→21:59)
[2017-08-23 19:44] LABS: HEPATITIS B SURFACE ANTIGEN NEGATIVE (NEGATIVE)
[2017-08-23] MEDS: HEPARIN 1000 UNITS/ML 10 ML INJ CATHETER (21:01)
[2017-08-23] MEDS: INSULIN GLARGINE [LANtus] 3 ML PEN SC (21:11)
[2017-08-23] MEDS: ACETAMINOPHEN 325 MG TAB PO (21:57)
[2017-08-23] MEDS: ATORVASTATIN 40 MG TAB PO (21:59)
[2017-08-24] MEDS: PANTOPRAZOLE (EC) 40 MG TAB PO (06:00)
[2017-08-24] MEDS: LEVOTHYROXINE 25 MCG TAB PO ×2 (06:08→13:07)
[2017-08-24 06:28] LABS: ADD MAN DIFF? NO
[2017-08-24 06:30] LABS: BASOPHIL # 0.1 10^3/ul (0.0-0.1); BASOPHILS % 0.9 % (0.0-2.0); EOSINOPHILS # 0.4 10^3/ul (0.0-0.5); HEMATOCRIT 34.1 % (37.0-47.0); HEMOGLOBIN 11.6 g/dl (12.0-16.0); LYMPHOCYTES # 2.3 10^3/ul (0.8-2.9); LYMPHOCYTES % 25.1 % (15.0-51.0); MEAN CORPUSCULAR HEMOGLOBIN 27.9 pg (29.0-33.0); MEAN PLATELET VOLUME 10.4 fl (7.4-10.4); MONOCYTE # 0.6 10^3/ul (0.3-0.9); NEUTROPHIL # 5.6 10^3/ul (1.6-7.5); NEUTROPHILS % 62.8 % (39.0-77.0); PLATELET COUNT 338 10^3/UL (140-415); RED BLOOD COUNT 4.16 10^6/ul (4.20-5.40); RED CELL DISTRIBUTION WIDTH 15.9 % (11.5-14.5)
[2017-08-24 06:51] LABS: ANION GAP 16 (8-16); BLOOD UREA NITROGEN 18 mg/dl (7-20); CARBON DIOXIDE 27 mmol/L (21-31); CHLORIDE 100 mmol/L (97-110); CREATININE 2.33 mg/dl (0.44-1.00); GLUCOSE 170 mg/dl (70-220); POTASSIUM 4.3 mmol/L (3.5-5.1); SODIUM 139 mmol/L (135-144)
[2017-08-24] MEDS: INSULIN ASPART [NOVOLOG] 3 ML PEN SC ×8 (08:00→23:58)
[2017-08-24] MEDS: REGADENOSON 0.4 MG/5 ML SYG (10:15)
[2017-08-24] MEDS: FISH OIL 1,000 MG CAP PO ×2 (13:06→20:51)
[2017-08-24] MEDS: CALCIUM/VITAMIN D (500/200) TAB PO (13:06)
[2017-08-24] MEDS: CLOPIDOGREL 75 MG TAB PO (13:06)
[2017-08-24] MEDS: VALSARTAN 80 MG TAB PO (13:06)
[2017-08-24] MEDS: ASCORBIC ACID 500 MG TAB PO (13:07)
[2017-08-24] MEDS: FAMOTIDINE 20 MG TAB PO (13:07)
[2017-08-24] MEDS: CHOLECALCIFEROL 1,000 UNIT TAB PO (13:07)
[2017-08-24] MEDS: AMLODIPINE 10 MG TAB PO (13:08)
[2017-08-24] MEDS: ALLOPURINOL 100 MG TAB PO (13:08)
[2017-08-24] MEDS: METOPROLOL 25 MG TAB PO ×2 (13:08→20:50)
[2017-08-24] MEDS: ESCITALOPRAM 10 MG TAB PO (13:08)
[2017-08-24] MEDS: ATORVASTATIN 40 MG TAB PO (20:49)
[2017-08-24] MEDS: INSULIN GLARGINE [LANtus] 3 ML PEN SC (20:53)
[2017-08-25] MEDS: PANTOPRAZOLE (EC) 40 MG TAB PO (05:36)
[2017-08-25 07:38] LABS: ADD MAN DIFF? NO
[2017-08-25 07:42] LABS: BASOPHIL # 0.1 10^3/ul (0.0-0.1); BASOPHILS % 0.8 % (0.0-2.0); EOSINOPHILS # 0.4 10^3/ul (0.0-0.5); EOSINOPHILS % 3.7 % (0.0-7.0); HEMATOCRIT 35.3 % (37.0-47.0); HEMOGLOBIN 11.9 g/dl (12.0-16.0); LYMPHOCYTES # 2.3 10^3/ul (0.8-2.9); LYMPHOCYTES % 24.3 % (15.0-51.0); MEAN CORPUSCULAR HEMOGLOBIN 27.9 pg (29.0-33.0); MEAN CORPUSCULAR HGB CONC 33.7 g/dl (32.0-37.0); MEAN CORPUSCULAR VOLUME 82.9 fl (82.0-101.0); MEAN PLATELET VOLUME 10.8 fl (7.4-10.4); MONOCYTE # 0.6 10^3/ul (0.3-0.9); MONOCYTES % 5.8 % (0.0-11.0); NEUTROPHIL # 6.1 10^3/ul (1.6-7.5); NEUTROPHILS % 65.1 % (39.0-77.0); PLATELET COUNT 326 10^3/UL (140-415); RED BLOOD COUNT 4.26 10^6/ul (4.20-5.40); RED CELL DISTRIBUTION WIDTH 15.9 % (11.5-14.5)
[2017-08-25 07:42] LABS: WHITE BLOOD COUNT 9.4 10^3/ul (4.8-10.8)
[2017-08-25] MEDS: ALENDRONATE 70 MG TAB PO (08:04)
[2017-08-25 08:14] LABS: ANION GAP 15 (8-16); BLOOD UREA NITROGEN 36 mg/dl (7-20); CALCIUM 9.3 mg/dl (8.4-10.2); CARBON DIOXIDE 25 mmol/L (21-31); CHLORIDE 99 mmol/L (97-110); CREATININE 3.53 mg/dl (0.44-1.00); GLUCOSE 214 mg/dl (70-220); POTASSIUM 4.2 mmol/L (3.5-5.1); SODIUM 135 mmol/L (135-144)
[2017-08-25] MEDS: INSULIN ASPART [NOVOLOG] 3 ML PEN SC ×7 (08:38→20:28)
[2017-08-25] MEDS: CLOPIDOGREL 75 MG TAB PO (08:42)
[2017-08-25] MEDS: FISH OIL 1,000 MG CAP PO ×2 (08:42→20:26)
[2017-08-25] MEDS: CHOLECALCIFEROL 1,000 UNIT TAB PO (08:42)
[2017-08-25] MEDS: CALCIUM/VITAMIN D (500/200) TAB PO (08:42)
[2017-08-25] MEDS: FAMOTIDINE 20 MG TAB PO (08:43)
[2017-08-25] MEDS: ALLOPURINOL 100 MG TAB PO (08:43)
[2017-08-25] MEDS: ESCITALOPRAM 10 MG TAB PO (08:43)
[2017-08-25] MEDS: ASCORBIC ACID 500 MG TAB PO (08:43)
[2017-08-25] MEDS: METOPROLOL 25 MG TAB PO ×2 (09:00→20:27)
[2017-08-25] MEDS: VALSARTAN 80 MG TAB PO (09:00)
[2017-08-25] MEDS: AMLODIPINE 10 MG TAB PO (09:00)
[2017-08-25 14:34] LABS: HEMOGLOBIN A1C 7.4 % (0-5.9)
[2017-08-25] MEDS: ACETAMINOPHEN 325 MG TAB PO (18:47)
[2017-08-25] MEDS: HEPARIN 1000 UNITS/ML 10 ML INJ CATHETER (20:06)
[2017-08-25] MEDS: INSULIN GLARGINE [LANtus] 3 ML PEN SC (20:26)
[2017-08-25] MEDS: ATORVASTATIN 40 MG TAB PO (20:27)
== END 2017-08-25 21:00 | disposition home or self-care (01) ==
LOC: E/R 06:59 → MS4 08:34
DX: R07.2 Precordial pain (principal); I12.0 Hypertensive chronic kidney disease with stage 5 chronic kidney disease or end stage renal disease; N18.6 End stage renal disease; Z99.2 Dependence on renal dialysis; E11.9 Type 2 diabetes mellitus without complications; E78.2 Mixed hyperlipidemia; F32.9 Major depressive disorder, single episode, unspecified; E03.9 Hypothyroidism, unspecified; M81.0 Age-related osteoporosis without current pathological fracture; M10.9 Gout, unspecified; E87.6 Hypokalemia; Z90.710 Acquired absence of both cervix and uterus; Z88.0 Allergy status to penicillin; Z83.3 Family history of diabetes mellitus; Z83.6 Family history of other diseases of the respiratory system; Z80.0 Family history of malignant neoplasm of digestive organs; E78.5 Hyperlipidemia, unspecified
CPT/HCPCS: 36415; 71045; 71250; 76705; 78452; 80048; 80061; 82550; 82553; 82962; 83036; 83540; 83690; 83735; 83880; 84100; 84439; 84443; 84484; 85025; 87340; 90935; 93005; 93017; 93306; 99285-25; G0378

== ENCOUNTER 2017-12-13 13:55 | Emergency (ER) | payer OTHER, BC ==
[2017-12-13] MEDS: CEFEPIME 2GM/50 ML (PMX) 50 ML IVPB (14:47)
[2017-12-13 15:09] LABS: ADD MAN DIFF? NO
[2017-12-13 15:16] LABS: WHITE BLOOD COUNT 8.5 10^3/ul (4.8-10.8)
[2017-12-13 15:16] LABS: BASOPHIL # 0.1 10^3/ul (0.0-0.1); BASOPHILS % 0.6 % (0.0-2.0); EOSINOPHILS # 0.2 10^3/ul (0.0-0.5); EOSINOPHILS % 2.2 % (0.0-7.0); HEMATOCRIT 32.9 % (37.0-47.0); HEMOGLOBIN 11.3 g/dl (12.0-16.0); LYMPHOCYTES # 1.7 10^3/ul (0.8-2.9); LYMPHOCYTES % 19.6 % (15.0-51.0); MEAN CORPUSCULAR HEMOGLOBIN 29.2 pg (29.0-33.0); MEAN CORPUSCULAR HGB CONC 34.3 g/dl (32.0-37.0); MEAN PLATELET VOLUME 9.4 fl (7.4-10.4); MONOCYTE # 0.7 10^3/ul (0.3-0.9); MONOCYTES % 8.1 % (0.0-11.0); NEUTROPHIL # 5.9 10^3/ul (1.6-7.5); NEUTROPHILS % 69.1 % (39.0-77.0); PLATELET COUNT 328 10^3/UL (140-415); RED BLOOD COUNT 3.87 10^6/ul (4.20-5.40); RED CELL DISTRIBUTION WIDTH 13.8 % (11.5-14.5)
[2017-12-13 15:34] LABS: ALANINE AMINOTRANSFERASE 16 IU/L (13-69); ALBUMIN 4.1 g/dl (3.3-4.9); ALBUMIN/GLOBULIN RATIO 1.02; ALKALINE PHOSPHATASE 87 IU/L (42-121); ANION GAP 13 (8-16); ASPARTATE AMINO TRANSFERASE 19 IU/L (15-46); BILIRUBIN,INDIRECT 0.3 mg/dl (0-1.1); BILIRUBIN,TOTAL 0.3 mg/dl (0.2-1.3); BLOOD UREA NITROGEN 9 mg/dl (7-20); CALCIUM 8.8 mg/dl (8.4-10.2); CARBON DIOXIDE 31 mmol/L (21-31); CHLORIDE 96 mmol/L (97-110); CREATININE 1.72 mg/dl (0.44-1.00); GLUCOSE 130 mg/dl (70-220); POTASSIUM 3.2 mmol/L (3.5-5.1); SODIUM 137 mmol/L (135-144); TOTAL PROTEIN 8.1 g/dl (6.1-8.1)
[2017-12-13 15:43] LABS: TROPONIN-I 0.017 ng/ml (0.000-0.120)
[2017-12-13] MEDS: LORAZEPAM 2 MG INJ IV (17:16)
[2017-12-13 17:53] LABS: ADD UMIC YES; UR ASCORBIC ACID NEGATIVE (NEGATIVE); UR BILIRUBIN (Dip) NEGATIVE (NEGATIVE); UR BLOOD (Dip) NEGATIVE (NEGATIVE); UR CLARITY CLEAR (CLEAR); UR COLOR STRAW (YELLOW); UR GLUCOSE (Dip) 2+ mg/dL (NEGATIVE); UR KETONES (Dip) NEGATIVE (NEGATIVE); UR LEUKOCYTE ESTERASE (Dip) NEGATIVE Leu/ul (NEGATIVE); UR NITRITE (Dip) NEGATIVE (NEGATIVE); UR RBC 0 /HPF (0-5); UR SPECIFIC GRAVITY (Dip) 1.005 (1.003-1.030); UR TOTAL PROTEIN (Dip) 3+ mg/dl (NEGATIVE); UR UROBILINOGEN (Dip) NEGATIVE (NEGATIVE); UR WBC 0 /HPF (0-5)
[2017-12-13 19:13] LABS: LACTIC ACID 0.8 mmol/L (0.5-2.0)
[2017-12-14 00:23] LABS: LACTIC ACID 0.9 mmol/L (0.5-2.0)
== END 2017-12-14 04:27 | disposition short-term general hospital (02) ==
LOC: E/R 13:55
DX: R68.83 Chills (without fever) (principal); R25.1 Tremor, unspecified; N18.6 End stage renal disease; I12.0 Hypertensive chronic kidney disease with stage 5 chronic kidney disease or end stage renal disease; E11.22 Type 2 diabetes mellitus with diabetic chronic kidney disease; Z79.4 Long term (current) use of insulin
CPT/HCPCS: 36415; 71045; 80053; 81001; 83605; 84484; 85025; 87040; 87086; 93005; 96374; 96375; 99285-25

== ENCOUNTER 2018-09-16 15:29 | Inpatient (IN) | payer OTHER, BC ==
[2018-09-16 16:11] LABS: ADD MAN DIFF? NO
[2018-09-16 16:16] LABS: BASOPHILS % 0.3 % (0.0-2.0); EOSINOPHILS # 0.2 10^3/ul (0.0-0.5); EOSINOPHILS % 1.4 % (0.0-7.0); HEMATOCRIT 32.9 % (37.0-47.0); HEMOGLOBIN 10.9 g/dl (12.0-16.0); LYMPHOCYTES # 1.4 10^3/ul (0.8-2.9); LYMPHOCYTES % 11.5 % (15.0-51.0); MEAN CORPUSCULAR HGB CONC 33.1 g/dl (32.0-37.0); MEAN CORPUSCULAR VOLUME 87.5 fl (82.0-101.0); MEAN PLATELET VOLUME 10.3 fl (7.4-10.4); MONOCYTE # 0.5 10^3/ul (0.3-0.9); MONOCYTES % 4.5 % (0.0-11.0); NEUTROPHIL # 9.9 10^3/ul (1.6-7.5); NEUTROPHILS % 81.9 % (39.0-77.0); PLATELET COUNT 274 10^3/UL (140-415); RED BLOOD COUNT 3.76 10^6/ul (4.20-5.40); RED CELL DISTRIBUTION WIDTH 16.9 % (11.5-14.5)
[2018-09-16 16:16] LABS: WHITE BLOOD COUNT 12.1 10^3/ul (4.8-10.8)
[2018-09-16 16:36] LABS: INR 0.84; PROTIME 11.6 Sec (11.9-14.9); PT RATIO 0.9
[2018-09-16 16:40] LABS: ANION GAP 15 (5-13); BLOOD UREA NITROGEN 40 mg/dl (7-20); CALCIUM 9.1 mg/dl (8.4-10.2); CARBON DIOXIDE 26 mmol/L (21-31); CHLORIDE 94 mmol/L (97-110); CREATININE 3.54 mg/dl (0.44-1.00); GLUCOSE 236 mg/dl (70-220); POTASSIUM 4.1 mmol/L (3.5-5.1); SODIUM 135 mmol/L (135-144)
[2018-09-16 16:51] LABS: TROPONIN-I < 0.012 ng/ml (0.000-0.120)
[2018-09-16] MEDS: SOD CHLORIDE 0.9% 500 ML IV (17:47)
[2018-09-16 20:30] LABS: ALANINE AMINOTRANSFERASE 8 IU/L (13-69); ALBUMIN 4.1 g/dl (3.3-4.9); ALKALINE PHOSPHATASE 135 IU/L (42-121); ASPARTATE AMINO TRANSFERASE 28 IU/L (15-46); BILIRUBIN,INDIRECT 0.4 mg/dl (0-1.1); BILIRUBIN,TOTAL 0.4 mg/dl (0.2-1.3); MAGNESIUM 2.4 mg/dl (1.7-2.5); TOTAL PROTEIN 8.1 g/dl (6.1-8.1)
[2018-09-16] MEDS ORDERED: BISACODYL (EC) 5 MG TAB PO (20:30)
[2018-09-16] MEDS ORDERED: NACL 0.9% 3 ML SYG IV (20:30)
[2018-09-16] MEDS ORDERED: DOCUSATE SODIUM 100 MG CAP PO (20:30)
[2018-09-16 20:46] LABS: FREE T4 (FREE THYROXINE) 1.95 ng/dl (0.78-2.44)
[2018-09-16] MEDS ORDERED: ONDANSETRON 4 MG TAB PO (21:30)
[2018-09-16 21:34] LABS: AMMONIA < 9 umol/l (9-30)
[2018-09-16] MEDS: hydrALAzine 20 MG INJ IV (22:21)
[2018-09-16] MEDS: HEPARIN 5,000 UNIT/1 ML VIAL SC (22:26)
[2018-09-16] MEDS: traZODone 50 MG TAB PO (23:05)
[2018-09-16 23:31] LABS: LACTIC ACID 0.7 mmol/L (0.5-2.0)
[2018-09-16] MEDS ORDERED: GLUCOSE GEL 15 GRAM TUBE BUCCAL (23:45)
[2018-09-16] MEDS ORDERED: GLUCAGON 1 MG INJ IM (23:45)
[2018-09-16] MEDS ORDERED: GLUCOSE GEL 15 GRAM TUBE PO ×2 (23:45)
[2018-09-16] MEDS ORDERED: DEXTROSE 50% 50 ML SYRINGE IV ×2 (23:45)
[2018-09-16] MEDS: AMLODIPINE 10 MG TAB PO (23:54)
[2018-09-17] MEDS: ACCUCHECK AT 2AM (Patients on SS coverage) XX (02:00)
[2018-09-17] MEDS ORDERED: VANCOMYCIN IV PER PHARMACY XX (05:00)
[2018-09-17] MEDS: CIPROFLOXACIN 400MG/D5W 200 ML IVPB (05:57)
[2018-09-17] MEDS: HEPARIN 5,000 UNIT/1 ML VIAL SC ×3 (06:09→21:47)
[2018-09-17 06:27] LABS: ADD MAN DIFF? NO
[2018-09-17 06:32] LABS: BASOPHIL # 0.1 10^3/ul (0.0-0.1); BASOPHILS % 0.6 % (0.0-2.0); EOSINOPHILS # 0.3 10^3/ul (0.0-0.5); HEMATOCRIT 30.6 % (37.0-47.0); HEMOGLOBIN 9.9 g/dl (12.0-16.0); LYMPHOCYTES # 1.7 10^3/ul (0.8-2.9); LYMPHOCYTES % 16.5 % (15.0-51.0); MEAN CORPUSCULAR HEMOGLOBIN 28.7 pg (29.0-33.0); MEAN CORPUSCULAR HGB CONC 32.4 g/dl (32.0-37.0); MEAN CORPUSCULAR VOLUME 88.7 fl (82.0-101.0); MEAN PLATELET VOLUME 10.7 fl (7.4-10.4); MONOCYTE # 0.7 10^3/ul (0.3-0.9); MONOCYTES % 7.1 % (0.0-11.0); NEUTROPHIL # 7.2 10^3/ul (1.6-7.5); NEUTROPHILS % 72.6 % (39.0-77.0); PLATELET COUNT 264 10^3/UL (140-415); RED BLOOD COUNT 3.45 10^6/ul (4.20-5.40); RED CELL DISTRIBUTION WIDTH 16.9 % (11.5-14.5)
[2018-09-17 06:48] LABS: HEMOGLOBIN A1C 8.4 % (0-5.9)
[2018-09-17] MEDS: metroNIDAZOLE 500 MG/NS (PMX) 100 ML IVPB ×3 (06:58→21:45)
[2018-09-17 06:59] LABS: ALANINE AMINOTRANSFERASE 18 IU/L (13-69); ALBUMIN 3.5 g/dl (3.3-4.9); ALBUMIN/GLOBULIN RATIO 1.06; ALKALINE PHOSPHATASE 98 IU/L (42-121); ANION GAP 10 (5-13); ASPARTATE AMINO TRANSFERASE 18 IU/L (15-46); BILIRUBIN,INDIRECT 0.5 mg/dl (0-1.1); BILIRUBIN,TOTAL 0.5 mg/dl (0.2-1.3); BLOOD UREA NITROGEN 42 mg/dl (7-20); CALCIUM 8.6 mg/dl (8.4-10.2); CARBON DIOXIDE 28 mmol/L (21-31); CHLORIDE 100 mmol/L (97-110); CREATININE 4.08 mg/dl (0.44-1.00); GLUCOSE 156 mg/dl (70-220); POTASSIUM 3.6 mmol/L (3.5-5.1); SODIUM 138 mmol/L (135-144); TOTAL PROTEIN 6.8 g/dl (6.1-8.1)
[2018-09-17] MEDS ORDERED: INSULIN ISOPHAN SC (07:00)
[2018-09-17] MEDS: INSULIN ASPART [NOVOLOG] 3 ML PEN SC ×4 (07:37→21:00)
[2018-09-17] MEDS: VANCOMYCIN 1 GM 250 ML IVPB (07:41)
[2018-09-17] MEDS: AMLODIPINE 10 MG TAB PO (08:17)
[2018-09-17] MEDS: CLOPIDOGREL 75 MG TAB PO (08:18)
[2018-09-17] MEDS ORDERED: AMLODIPINE 10 MG TAB PO (09:00)
[2018-09-17] MEDS ORDERED: PIPER-TAZO 2.25 GM (PMX) 50 ML IVPB (09:00)
[2018-09-17] MEDS: ALLOPURINOL 300 MG TAB PO ×2 (09:00→18:18)
[2018-09-17] MEDS: FISH OIL 1,000 MG CAP PO ×2 (09:00→21:43)
[2018-09-17] MEDS ORDERED: NON-FORMULARY/PATIENT OWN MED (Cholecalciferol (Vitamin D3) (Vitamin D-3) 2,000 UNIT) PO (09:00)
[2018-09-17] MEDS: CHOLECALCIFEROL 2,000 UNIT CAP PO ×2 (09:00→18:18)
[2018-09-17] MEDS ORDERED: NON-FORMULARY/PATIENT OWN MED (Omega-3 Acid Ethyl Esters (Lovaza) 2 GM) PO (09:00)
[2018-09-17] MEDS ORDERED: NON-FORMULARY/PATIENT OWN MED (Valsartan* (Diovan*) 320 MG) PO (09:00)
[2018-09-17] MEDS: LOSARTAN 50 MG TAB PO (12:13)
[2018-09-17] MEDS: OLANZAPINE 10 MG VIAL IM (14:20)
[2018-09-17] MEDS ORDERED: SODIUM CHLORIDE 0.9% 1L BAG IV (15:30)
[2018-09-17] MEDS ORDERED: ALBUMIN HUMAN 25% 100 ML IV (15:30)
[2018-09-17] MEDS ORDERED: HEPARIN 1000 UNITS/ML 10 ML INJ CATHETER (15:30)
[2018-09-17 16:35] LABS: HEPATITIS B SURFACE ANTIGEN NEGATIVE (NEGATIVE)
[2018-09-17] MEDS: ATORVASTATIN 40 MG TAB PO (21:43)
[2018-09-18] MEDS: INSULIN ASPART [NOVOLOG] 3 ML PEN SC ×6 (01:00→20:42)
[2018-09-18] MEDS: ACCUCHECK AT 2AM (Patients on SS coverage) XX (02:00)
[2018-09-18 05:53] LABS: ADD MAN DIFF? NO
[2018-09-18] MEDS: CIPROFLOXACIN 400MG/D5W 200 ML IVPB (05:57)
[2018-09-18 06:01] LABS: BASOPHIL # 0.1 10^3/ul (0.0-0.1); BASOPHILS % 0.9 % (0.0-2.0); EOSINOPHILS # 0.4 10^3/ul (0.0-0.5); EOSINOPHILS % 3.8 % (0.0-7.0); HEMATOCRIT 30.5 % (37.0-47.0); HEMOGLOBIN 9.9 g/dl (12.0-16.0); LYMPHOCYTES # 1.1 10^3/ul (0.8-2.9); LYMPHOCYTES % 11.3 % (15.0-51.0); MEAN CORPUSCULAR HEMOGLOBIN 28.6 pg (29.0-33.0); MEAN CORPUSCULAR HGB CONC 32.5 g/dl (32.0-37.0); MEAN CORPUSCULAR VOLUME 88.2 fl (82.0-101.0); MEAN PLATELET VOLUME 10.5 fl (7.4-10.4); MONOCYTE # 0.6 10^3/ul (0.3-0.9); MONOCYTES % 6.6 % (0.0-11.0); NEUTROPHIL # 7.2 10^3/ul (1.6-7.5); NEUTROPHILS % 77.2 % (39.0-77.0); PLATELET COUNT 266 10^3/UL (140-415); RED BLOOD COUNT 3.46 10^6/ul (4.20-5.40); RED CELL DISTRIBUTION WIDTH 16.8 % (11.5-14.5)
[2018-09-18 06:01] LABS: WHITE BLOOD COUNT 9.3 10^3/ul (4.8-10.8)
[2018-09-18] MEDS: HEPARIN 5,000 UNIT/1 ML VIAL SC ×3 (06:05→22:57)
[2018-09-18] MEDS: metroNIDAZOLE 500 MG/NS (PMX) 100 ML IVPB ×3 (06:06→22:53)
[2018-09-18 06:33] LABS: ANION GAP 11 (5-13); BLOOD UREA NITROGEN 47 mg/dl (7-20); CALCIUM 9.1 mg/dl (8.4-10.2); CARBON DIOXIDE 23 mmol/L (21-31); CHLORIDE 105 mmol/L (97-110); CREATININE 4.87 mg/dl (0.44-1.00); GLUCOSE 140 mg/dl (70-220); POTASSIUM 4.1 mmol/L (3.5-5.1); SODIUM 139 mmol/L (135-144)
[2018-09-18] MEDS: CHOLECALCIFEROL 2,000 UNIT CAP PO (08:42)
[2018-09-18] MEDS: AMLODIPINE 10 MG TAB PO (08:42)
[2018-09-18] MEDS: CLOPIDOGREL 75 MG TAB PO (08:42)
[2018-09-18] MEDS: LOSARTAN 50 MG TAB PO (08:43)
[2018-09-18] MEDS: ALLOPURINOL 300 MG TAB PO (08:43)
[2018-09-18] MEDS: FISH OIL 1,000 MG CAP PO ×2 (08:45→20:34)
[2018-09-18] MEDS: LIDOCAINE 1% (MPF) 5 ML VIAL INJ (10:56)
[2018-09-18] MEDS: ATORVASTATIN 40 MG TAB PO (20:33)
[2018-09-18] MEDS: VALPROATE INJ 750 MG in SOD CHLORIDE 0.9% 50 ML IVPB (21:49)
[2018-09-19] MEDS: ACCUCHECK AT 2AM (Patients on SS coverage) XX (01:50)
[2018-09-19] MEDS: INSULIN ASPART [NOVOLOG] 3 ML PEN SC ×6 (01:50→21:30)
[2018-09-19] MEDS: CIPROFLOXACIN 400MG/D5W 200 ML IVPB (05:09)
[2018-09-19] MEDS: metroNIDAZOLE 500 MG/NS (PMX) 100 ML IVPB ×3 (06:18→21:26)
[2018-09-19] MEDS: HEPARIN 5,000 UNIT/1 ML VIAL SC ×3 (06:19→22:37)
[2018-09-19] MEDS: ONDANSETRON 4 MG INJ IV (06:21)
[2018-09-19 06:22] LABS: VANCOMYCIN,RANDOM 12.2 ug/ml
[2018-09-19 06:24] LABS: VALPROATE 35 ug/ml (50-100)
[2018-09-19] MEDS: FISH OIL 1,000 MG CAP PO ×2 (09:00→21:26)
[2018-09-19] MEDS: DIVALPROEX (EC) 250 MG TAB PO ×3 (09:21→21:26)
[2018-09-19] MEDS: ALLOPURINOL 300 MG TAB PO (09:22)
[2018-09-19] MEDS: LOSARTAN 50 MG TAB PO (09:23)
[2018-09-19] MEDS: AMLODIPINE 10 MG TAB PO (09:23)
[2018-09-19] MEDS: CLOPIDOGREL 75 MG TAB PO (09:23)
[2018-09-19] MEDS: CHOLECALCIFEROL 2,000 UNIT CAP PO (09:23)
[2018-09-19] MEDS: LIDOCAINE 1% (MDV) 20 ML INJ INJ (12:28)
[2018-09-19] MEDS: VALPROATE INJ 500 MG in SOD CHLORIDE 0.9% 50 ML IVPB (15:46)
[2018-09-19] MEDS: VANCOMYCIN 750 MG (PMX) 250 ML IVPB (17:04)
[2018-09-19] MEDS: ATORVASTATIN 40 MG TAB PO (21:26)
[2018-09-20] MEDS: INSULIN ASPART [NOVOLOG] 3 ML PEN SC ×6 (01:00→21:43)
[2018-09-20] MEDS: ACCUCHECK AT 2AM (Patients on SS coverage) XX (02:05)
[2018-09-20] MEDS: CIPROFLOXACIN 400MG/D5W 200 ML IVPB (05:38)
[2018-09-20] MEDS: metroNIDAZOLE 500 MG/NS (PMX) 100 ML IVPB ×3 (05:38→21:39)
[2018-09-20] MEDS: HEPARIN 5,000 UNIT/1 ML VIAL SC ×3 (05:40→21:45)
[2018-09-20] MEDS: CHOLECALCIFEROL 2,000 UNIT CAP PO (08:13)
[2018-09-20] MEDS: FISH OIL 1,000 MG CAP PO ×2 (08:13→21:39)
[2018-09-20] MEDS: ALLOPURINOL 300 MG TAB PO (08:13)
[2018-09-20] MEDS: AMLODIPINE 10 MG TAB PO (08:13)
[2018-09-20] MEDS: DIVALPROEX (EC) 250 MG TAB PO ×3 (08:13→21:39)
[2018-09-20] MEDS: CLOPIDOGREL 75 MG TAB PO (08:13)
[2018-09-20] MEDS: LOSARTAN 50 MG TAB PO (08:14)
[2018-09-20] MEDS: DOXAZOSIN 1 MG TAB PO (12:39)
[2018-09-20] MEDS: ATORVASTATIN 40 MG TAB PO (21:39)
[2018-09-20] MEDS: DOXAZOSIN 2 MG TAB PO (21:46)
[2018-09-21] MEDS: INSULIN ASPART [NOVOLOG] 3 ML PEN SC ×6 (01:00→22:06)
[2018-09-21] MEDS: ACCUCHECK AT 2AM (Patients on SS coverage) XX (02:00)
[2018-09-21] MEDS: CIPROFLOXACIN 400MG/D5W 200 ML IVPB (05:19)
[2018-09-21] MEDS: metroNIDAZOLE 500 MG/NS (PMX) 100 ML IVPB ×2 (05:19→13:10)
[2018-09-21] MEDS: HEPARIN 5,000 UNIT/1 ML VIAL SC ×3 (05:21→22:48)
[2018-09-21 06:22] LABS: VALPROATE 45 ug/ml (50-100)
[2018-09-21] MEDS: LOSARTAN 50 MG TAB PO (08:43)
[2018-09-21] MEDS: CLOPIDOGREL 75 MG TAB PO (08:43)
[2018-09-21] MEDS: CHOLECALCIFEROL 2,000 UNIT CAP PO (08:43)
[2018-09-21] MEDS: FISH OIL 1,000 MG CAP PO ×2 (08:43→22:09)
[2018-09-21] MEDS: ALLOPURINOL 300 MG TAB PO (08:44)
[2018-09-21] MEDS: AMLODIPINE 10 MG TAB PO (08:44)
[2018-09-21] MEDS: DIVALPROEX (EC) 250 MG TAB PO ×2 (08:44→12:30)
[2018-09-21] MEDS: POLYETHYLENE GLYCOL 17 GM PACKET PO ×2 (16:53→21:00)
[2018-09-21] MEDS: SENNA/DOCUSATE NA (8.6MG/50MG) TAB PO (16:53)
[2018-09-21] MEDS: VALPROATE INJ 500 MG in SOD CHLORIDE 0.9% 50 ML IVPB (17:29)
[2018-09-21] MEDS: DIVALPROEX (EC) 500 MG TAB PO (22:08)
[2018-09-21] MEDS: ATORVASTATIN 40 MG TAB PO (22:09)
[2018-09-21] MEDS: DOXAZOSIN 2 MG TAB PO (22:09)
[2018-09-22] MEDS: ACCUCHECK AT 2AM (Patients on SS coverage) XX (02:56)
[2018-09-22 05:53] LABS: ADD MAN DIFF? NO
[2018-09-22 05:56] LABS: BASOPHILS % 0.4 % (0.0-2.0); EOSINOPHILS # 0.3 10^3/ul (0.0-0.5); HEMATOCRIT 27.4 % (37.0-47.0); HEMOGLOBIN 9.3 g/dl (12.0-16.0); LYMPHOCYTES # 1.5 10^3/ul (0.8-2.9); MEAN CORPUSCULAR HGB CONC 33.9 g/dl (32.0-37.0); MEAN CORPUSCULAR VOLUME 85.4 fl (82.0-101.0); MEAN PLATELET VOLUME 10.8 fl (7.4-10.4); MONOCYTE # 0.6 10^3/ul (0.3-0.9); MONOCYTES % 8.8 % (0.0-11.0); NEUTROPHIL # 4.3 10^3/ul (1.6-7.5); NEUTROPHILS % 63.5 % (39.0-77.0); PLATELET COUNT 230 10^3/UL (140-415); RED BLOOD COUNT 3.21 10^6/ul (4.20-5.40); RED CELL DISTRIBUTION WIDTH 15.6 % (11.5-14.5)
[2018-09-22 05:56] LABS: WHITE BLOOD COUNT 6.8 10^3/ul (4.8-10.8)
[2018-09-22] MEDS: HEPARIN 5,000 UNIT/1 ML VIAL SC ×2 (06:11→13:56)
[2018-09-22 06:17] LABS: MAGNESIUM 2.1 mg/dl (1.7-2.5)
[2018-09-22 06:17] LABS: PHOSPHORUS 6.8 mg/dl (2.5-4.9)
[2018-09-22 06:40] LABS: VALPROATE 91 ug/ml (50-100)
[2018-09-22 06:53] LABS: ALANINE AMINOTRANSFERASE 41 IU/L (13-69); ALKALINE PHOSPHATASE 81 IU/L (42-121); ANION GAP 14 (5-13); ASPARTATE AMINO TRANSFERASE 47 IU/L (15-46); BILIRUBIN,INDIRECT 0.1 mg/dl (0-1.1); BILIRUBIN,TOTAL 0.1 mg/dl (0.2-1.3); BLOOD UREA NITROGEN 39 mg/dl (7-20); CALCIUM 8.3 mg/dl (8.4-10.2); CARBON DIOXIDE 22 mmol/L (21-31); CHLORIDE 97 mmol/L (97-110); CREATININE 4.95 mg/dl (0.44-1.00); GLUCOSE 136 mg/dl (70-220); POTASSIUM 3.8 mmol/L (3.5-5.1); SODIUM 133 mmol/L (135-144)
[2018-09-22] MEDS: INSULIN ASPART [NOVOLOG] 3 ML PEN SC ×3 (07:00→17:29)
[2018-09-22] MEDS: SENNA/DOCUSATE NA (8.6MG/50MG) TAB PO (08:50)
[2018-09-22] MEDS: AMLODIPINE 10 MG TAB PO (08:50)
[2018-09-22] MEDS: ALLOPURINOL 300 MG TAB PO (08:50)
[2018-09-22] MEDS: POLYETHYLENE GLYCOL 17 GM PACKET PO (08:50)
[2018-09-22] MEDS: CHOLECALCIFEROL 2,000 UNIT CAP PO (08:50)
[2018-09-22] MEDS: DIVALPROEX (EC) 500 MG TAB PO ×2 (08:50→13:59)
[2018-09-22] MEDS: FISH OIL 1,000 MG CAP PO (08:50)
[2018-09-22] MEDS: LOSARTAN 50 MG TAB PO (08:50)
[2018-09-22] MEDS: LIDOCAINE 1% (MDV) 20 ML INJ INJ (09:38)
[2018-09-22] MEDS: CLOPIDOGREL 75 MG TAB PO (14:00)
[2018-09-22] MEDS: ACETAMINOPHEN 325 MG TAB PO (14:01)
== END 2018-09-22 20:43 | disposition home or self-care (01) | DRG 100 ==
LOC: E/R 15:29 → 6WM 20:29
PROC: 5A1D70Z Performance of Urinary Filtration, Intermittent, Less than 6 Hours Per Day (ICD-10-PCS; principal; 2018-09-18)
DX: G40.909 Epilepsy, unspecified, not intractable, without status epilepticus (principal); N18.6 End stage renal disease; I12.0 Hypertensive chronic kidney disease with stage 5 chronic kidney disease or end stage renal disease; G93.40 Encephalopathy, unspecified; N39.0 Urinary tract infection, site not specified; R55 Syncope and collapse; E11.22 Type 2 diabetes mellitus with diabetic chronic kidney disease; Z99.2 Dependence on renal dialysis; Z90.710 Acquired absence of both cervix and uterus; E78.5 Hyperlipidemia, unspecified; I25.10 Atherosclerotic heart disease of native coronary artery without angina pectoris; E03.9 Hypothyroidism, unspecified; E88.81 Metabolic syndrome and other insulin resistance; D64.9 Anemia, unspecified; M81.0 Age-related osteoporosis without current pathological fracture
CPT/HCPCS: 36415; 70450; 71045; 76705; 80048; 80053; 80076; 80164; 80202; 82140; 82962; 83036; 83605; 83735; 84100; 84439; 84443; 84484; 85025; 85610; 87040-91; 87081; 87340; 90935; 92526; 92610; 93005; 93306; 93880; 95819; 97116; 97162; 97530; 99285-25; G0378

== ENCOUNTER 2018-11-28 12:48 | Emergency (ER) | payer OTHER, BC ==
[2018-11-28 14:28] LABS: ADD MAN DIFF? NO
[2018-11-28 14:32] LABS: WHITE BLOOD COUNT 10.6 10^3/ul (4.8-10.8)
[2018-11-28 14:32] LABS: BASOPHIL # 0.1 10^3/ul (0.0-0.1); BASOPHILS % 0.7 % (0.0-2.0); EOSINOPHILS # 0.1 10^3/ul (0.0-0.5); HEMATOCRIT 39.6 % (37.0-47.0); HEMOGLOBIN 13.2 g/dl (12.0-16.0); LYMPHOCYTES # 1.6 10^3/ul (0.8-2.9); LYMPHOCYTES % 15.1 % (15.0-51.0); MEAN CORPUSCULAR HEMOGLOBIN 29.6 pg (29.0-33.0); MEAN CORPUSCULAR HGB CONC 33.3 g/dl (32.0-37.0); MEAN CORPUSCULAR VOLUME 88.8 fl (82.0-101.0); MEAN PLATELET VOLUME 9.9 fl (7.4-10.4); MONOCYTE # 0.9 10^3/ul (0.3-0.9); NEUTROPHILS % 74.8 % (39.0-77.0); PLATELET COUNT 206 10^3/UL (140-415); RED BLOOD COUNT 4.46 10^6/ul (4.20-5.40); RED CELL DISTRIBUTION WIDTH 15.9 % (11.5-14.5)
[2018-11-28 14:51] LABS: ANION GAP 6 (5-13); BLOOD UREA NITROGEN 27 mg/dl (7-20); CALCIUM 8.6 mg/dl (8.4-10.2); CARBON DIOXIDE 34 mmol/L (21-31); CHLORIDE 96 mmol/L (97-110); CREATININE 2.88 mg/dl (0.44-1.00); GLUCOSE 266 mg/dl (70-220); POTASSIUM 3.8 mmol/L (3.5-5.1); SODIUM 136 mmol/L (135-144)
[2018-11-28 15:16] LABS: VALPROATE 49 ug/ml (50-100)
== END 2018-11-28 16:40 | disposition home or self-care (01) ==
LOC: E/R 12:48
DX: S06.9X9A Unspecified intracranial injury with loss of consciousness of unspecified duration, initial encounter (principal); E11.65 Type 2 diabetes mellitus with hyperglycemia; E11.22 Type 2 diabetes mellitus with diabetic chronic kidney disease; N18.6 End stage renal disease; I12.0 Hypertensive chronic kidney disease with stage 5 chronic kidney disease or end stage renal disease; I25.10 Atherosclerotic heart disease of native coronary artery without angina pectoris; R51 Headache; W06.XXXA Fall from bed, initial encounter; Y92.009 Unspecified place in unspecified non-institutional (private) residence as the place of occurrence of the external cause; Z99.2 Dependence on renal dialysis; Z79.4 Long term (current) use of insulin; Z79.01 Long term (current) use of anticoagulants
CPT/HCPCS: 70450; 80048; 80164; 85025; 93005; 99285-25